=== PATIENT | male | born 1950 | race Caucasian/White ===

== ENCOUNTER 2019-05-27 13:46 | Observation (INO) ==
[2019-05-27 14:21] LABS: Bilirubin,Urine Small (Negative); Blood,Urine Negative (Negative); Clarity,Urine Clear (Clear); Color,Urine Dark Yellow (Yellow); Glucose,Urine (UA) Normal (Normal); Ketones,Urine Negative (Negative); Leukocyte Esterase,Urine Negative (Negative); Nitrite,Urine Negative (Negative); PH,Urine 5.5 pH Units (5.0-8.0); Protein,Urine 30 mg/dL (Neg-Trace); Specific Gravity,Urine 1.028 (1.010-1.025); Urobilinogen,Urine Normal (Normal)
[2019-05-27 14:23] LABS: Hyaline Casts,Urine None Seen per lpf (None-Few); RBC,Urine 0-3 per hpf (0-3); Squamous Epithelial Cell,Urine Many per lpf (None-Few); WBC,Urine 0-3 per hpf (0-3)
[2019-05-27 14:36] LABS: Transitional Epi Cells,Urine Moderate per hpf (None-Few)
[2019-05-27 14:37] LABS: Bacteria,Urine Few per hpf (None-Few)
[2019-05-27 14:51] LABS: Basophils % 0.3 %; Eosinophils # 0.2 K/mcL (0.0-0.6); Hematocrit 46.3 % (37.5-50.1); Hemoglobin 15.8 g/dL (12.9-16.9); Immature Granulocytes % 0.4 % (0-4); Lymphocytes # 2.1 K/mcL (0.6-4.6); Lymphocytes % 13.1 %; Mean Corpuscular HGB Conc 34.1 g/dL (31.6-35.5); Mean Corpuscular Hemoglobin 30.7 pg (28.0-33.3); Mean Corpuscular Volume 89.9 fL (83.0-100.0); Mean Platelet Volume 10.7 fL (9.4-12.4); Monocytes # 1.4 K/mcL (0.0-1.3); Monocytes % 8.9 %; Neutrophils # 12.1 K/mcL (1.6-8.9); Platelet Count 228 K/mcL (140-400); Red Blood Count 5.15 M/mcL (4.19-5.50); Red Cell Distribution Width 11.9 % (11.5-14.5); Segmented Neutrophils % 76.3 %; White Blood Count 15.9 K/mcL (4.3-11.1)
[2019-05-27] MEDS ORDERED: 0.9 % Sodium Chloride 1,000 ML IVC ONE (14:59)
[2019-05-27 15:13] LABS: BUN/Creatinine Ratio 37 (6-26); Blood Urea Nitrogen 26 mg/dL (8-23); Calcium 9.3 mg/dL (8.6-10.3); Carbon Dioxide 24 mEq/L (23-29); Chloride 103 mEq/L (98-107); Glucose 139 mg/dL (70-105); Osmolality,Calculated 289 (280-300); Potassium 4.3 mEq/L (3.5-5.1); Sodium 136 mEq/L (136-145); eGFR For African Americans > 60 (> 60); eGFR For Non-African Americans > 60 (> 60)
[2019-05-27 15:15] LABS: Troponin I < 0.03 ng/mL (< 0.04)
[2019-05-27] MEDS ORDERED: Naloxone 0.4 MG/ML INJ IVP PRN (17:35)
[2019-05-27] MEDS ORDERED: 0.9 % Sodium Chloride 1,000 ML IVC SCH (17:45)
[2019-05-27 18:11] LABS: C-Reactive Protein 91 mg/L (Less than 10)
[2019-05-27] MEDS: Indomethacin 25 MG CAPSULE PO SCH (22:10)
[2019-05-27] MEDS: 0.9 % Sodium Chloride 1,000 ML IVC SCH (22:11)
[2019-05-27] MEDS: *HR* Heparin 5,000 UNIT/ML VIAL SQ SCH (22:12)
[2019-05-28 05:23] LABS: Basophils % 0.2 %; Eosinophils # 0.1 K/mcL (0.0-0.6); Hematocrit 40.6 % (37.5-50.1); Immature Granulocytes % 0.4 % (0-4); Lymphocytes % 17.1 %; Mean Corpuscular HGB Conc 32.8 g/dL (31.6-35.5); Mean Corpuscular Hemoglobin 30.6 pg (28.0-33.3); Mean Corpuscular Volume 93.3 fL (83.0-100.0); Mean Platelet Volume 10.4 fL (9.4-12.4); Monocytes # 1.3 K/mcL (0.0-1.3); Monocytes % 10.8 %; Neutrophils # 8.4 K/mcL (1.6-8.9); Platelet Count 179 K/mcL (140-400); Red Blood Count 4.35 M/mcL (4.19-5.50); Red Cell Distribution Width 11.9 % (11.5-14.5); Segmented Neutrophils % 70.5 %; White Blood Count 11.9 K/mcL (4.3-11.1)
[2019-05-28 05:24] LABS: Hemoglobin 13.3 g/dL (12.9-16.9)
[2019-05-28] MEDS: *HR* Heparin 5,000 UNIT/ML VIAL SQ SCH ×3 (05:34→21:22)
[2019-05-28] MEDS: 0.9 % Sodium Chloride 1,000 ML IVC SCH (05:34)
[2019-05-28 05:44] LABS: BUN/Creatinine Ratio 45 (6-26); Blood Urea Nitrogen 26 mg/dL (8-23); Calcium 8.6 mg/dL (8.6-10.3); Carbon Dioxide 24 mEq/L (23-29); Chloride 109 mEq/L (98-107); Glucose 97 mg/dL (70-105); Osmolality,Calculated 297 (280-300); Potassium 4.1 mEq/L (3.5-5.1); Sodium 141 mEq/L (136-145); Uric Acid 3.2 mg/dL (2.3-7.6); eGFR For African Americans > 60 (> 60); eGFR For Non-African Americans > 60 (> 60)
[2019-05-28] MEDS ORDERED: Aminoglycoside Consult 1 EACH MC ONE (08:10)
[2019-05-28] MEDS: Indomethacin 25 MG CAPSULE PO SCH ×3 (09:23→16:55)
[2019-05-28] MEDS ORDERED: Acetaminophen 325 MG TABLET PO PRN (14:12)
[2019-05-28] MEDS ORDERED: Ringers Solution, Lactated 1,000 ML IVC SCH (14:30)
[2019-05-28] MEDS: cefTRIAXone 1,000 MG in Water for inj. (sterile) 10 ML IVP SCH (15:10)
[2019-05-29] MEDS: *HR* Heparin 5,000 UNIT/ML VIAL SQ SCH ×3 (06:04→21:32)
[2019-05-29 07:23] LABS: Basophils % 0.4 %; Eosinophils # 0.3 K/mcL (0.0-0.6); Hematocrit 37.8 % (37.5-50.1); Hemoglobin 12.8 g/dL (12.9-16.9); Immature Granulocytes % 0.3 % (0-4); Lymphocytes # 1.9 K/mcL (0.6-4.6); Lymphocytes % 19.4 %; Mean Corpuscular HGB Conc 33.9 g/dL (31.6-35.5); Mean Corpuscular Hemoglobin 29.9 pg (28.0-33.3); Mean Corpuscular Volume 88.3 fL (83.0-100.0); Mean Platelet Volume 11.5 fL (9.4-12.4); Monocytes # 0.9 K/mcL (0.0-1.3); Monocytes % 9.1 %; Neutrophils # 6.5 K/mcL (1.6-8.9); Platelet Count 156 K/mcL (140-400); Red Blood Count 4.28 M/mcL (4.19-5.50); Red Cell Distribution Width 11.9 % (11.5-14.5); Segmented Neutrophils % 67.8 %; White Blood Count 9.6 K/mcL (4.3-11.1)
[2019-05-29 07:40] LABS: BUN/Creatinine Ratio 43 (6-26); Blood Urea Nitrogen 21 mg/dL (8-23); Calcium 8.4 mg/dL (8.6-10.3); Carbon Dioxide 24 mEq/L (23-29); Chloride 109 mEq/L (98-107); Glucose 94 mg/dL (70-105); Osmolality,Calculated 295 (280-300); Potassium 3.8 mEq/L (3.5-5.1); Sodium 141 mEq/L (136-145); eGFR For African Americans > 60 (> 60); eGFR For Non-African Americans > 60 (> 60)
[2019-05-29] MEDS: Indomethacin 25 MG CAPSULE PO SCH ×3 (09:03→15:44)
[2019-05-29] MEDS: cefTRIAXone 1,000 MG in Water for inj. (sterile) 10 ML IVP SCH (15:41)
[2019-05-29] MEDS: Melatonin 3 MG TABLET PO SCH (21:32)
[2019-05-30] MEDS: *HR* Heparin 5,000 UNIT/ML VIAL SQ SCH ×3 (06:00→21:48)
[2019-05-30] MEDS: Indomethacin 25 MG CAPSULE PO SCH ×3 (10:47→18:04)
[2019-05-30] MEDS: Melatonin 3 MG TABLET PO SCH (21:48)
[2019-05-31] MEDS: *HR* Heparin 5,000 UNIT/ML VIAL SQ SCH ×3 (05:45→21:29)
[2019-05-31] MEDS: Indomethacin 25 MG CAPSULE PO SCH ×2 (08:05→11:49)
[2019-05-31] MEDS ORDERED: Ibuprofen 400 MG TABLET PO PRN (14:21)
[2019-05-31] MEDS: Melatonin 3 MG TABLET PO SCH (21:29)
[2019-06-01] MEDS: *HR* Heparin 5,000 UNIT/ML VIAL SQ SCH (05:47)
[2019-06-01 11:13] VITALS: BP 113/70
== END 2019-06-01 13:19 ==
LOC: EMEROOARM 13:46 → 3BNU 13:46 → SUATTDRO 16:53 → 3BNU 18:07
PROVIDERS: ADMIT Internal Medicine; ATTEND Internal Medicine